=== PATIENT | female | born 1960 | race Caucasian/White ===

== ENCOUNTER 2019-02-20 11:44 | Inpatient (IN) ==
--- NOTE | 2019-02-20 12:06 | Emergency Department Note ---
Disposition Clinical Impression: Pneumonia Qualifiers: Pneumonia type: due to unspecified organism Laterality: left Lung location: lower lobe of lung Qualified Code(s): J18.1 - Lobar pneumonia, unspecified organism Disposition: Admitted As Inpatient Condition: Fair Time of Disposition: 14:37 General Adult HPI - General Chief complaint: ED Shortness of Breath/Dyspnea Stated complaint: TK, PE & DVT last week Time Seen by Provider: 02/20/19 11:51 Source: patient Limitations: no limitations Nursing Notes Reviewed: Yes Vital Signs Reviewed: Yes - History of Present Illness HPI Narrative: Ms. Sharp is a 58-year-old female presented to the ED complaining of worsening shortness of breath with exertion. She reports she was diagnosed with pulmonary embolism on 02/14/19 in [place]. She had bilateral DVTs with known history of factor V Leiden diagnosed one week ago. States that she was on heparin drip for 2 days and was discharged on xarelto, currently taking general to 15 mg twice a day. States no shortness of breath at rest but worsening shortness of breath with exertion. States that she was on doxycycline for "cellulitis" just last week, denies any recent use of antibiotic. Does report left earache. Reports poor oral intake for the past week but no episodes of emesis. Reports she had a fever 101.6 last night. The fever does resolve after taking Tylenol but returns at night. Has had ongoing fever for the past 3 weeks was being treated for lower extremity cellulitis and at that time her highest temperature was 102.6. Also reports ongoing cough for the past week. She denies abdominal pain, dysuria, lower extremity edema, headache, chest pain, visual disturbance, sore throat. Pain Scale: 6 - Related Data Home Medications Medication Instructions Recorded Confirmed Calcium Carbonate [Tums] 500 mg PO Q4H PRN 02/20/19 02/20/19 Ergocalciferol (VITAMIN D2) 50,000 unit PO TAMAYO 02/20/19 02/20/19 [Vitamin D2] Escitalopram [Lexapro] 10 mg PO DAILY 02/20/19 02/20/19 Rivaroxaban [Xarelto] 15 mg PO BID 02/20/19 02/20/19 Allergies Allergy/AdvReac Type Severity Reaction Status Date / Time No Known Allergies Allergy Verified 02/20/19 13:20 All systems ED: reviewed and negative except as stated. Review of Systems: As Per HPI Constitutional: Reports: fever. Denies: chills, weakness ENT ED: Denies: throat pain, congestion Cardiovascular: Reports: dyspnea on exertion. Denies: chest pain, palpitations Respiratory: Reports: cough, dyspnea (On exertion). Denies: wheezes Gastrointestinal: Denies: abdominal pain, nausea, vomiting Genitourinary: Denies: urgency, dysuria Musculoskeletal: Denies: back pain Integumentary: Denies: rash, abrasion Neurological: Denies: headache, weakness Hematological/Lymphatic: Denies: easy bleeding Past Medical History - Past Medical History Medical history: Reports: cancer, DVT, pulmonary embolus - Social History Smoking Status: Never smoker Alcohol use: Reports: none Drug use: Reports: none Physical Exam - General General appearance: alert, in no apparent distress - Head Head exam: atraumatic, normocephalic - Eye Eye exam: Present: normal appearance, EOMI. Absent: scleral icterus - ENT ENT exam: normal exam, normal oropharynx - Neck Neck exam: Present: normal inspection, full ROM, trachea midline - Chest Chest inspection: Present: normal inspection, symmetric chest wall rise - Respiratory Respiratory exam: Present: normal lung sounds bilaterally, other (On 2 L of nasal cannula, room air saturation 87%). Absent: respiratory distress, wheezes - Cardiovascular Cardiovascular exam: Present: tachycardia - Abdominal Exam Abdominal exam: Present: soft, Non-Tender. Absent: distention, guarding - Extremities Exam Extremities exam: Absent: tenderness, pedal edema - Neurological Exam Neurological exam: Present: alert, oriented X3 - Psychiatric Psychiatric exam: Present: normal affect, normal mood Course Vital Signs Temperature 99.3 F 02/20/19 11:57 Pulse Rate 116 02/20/19 11:57 Respiratory Rate 22 02/20/19 11:57 Blood Pressure 124/92 02/20/19 11:57 O2 Sat by Pulse Oximetry 88 02/20/19 11:57 Temperature 99.3 F 02/20/19 11:57 Pulse Rate 97 02/20/19 13:20 Respiratory Rate 02/20/19 13:20 Blood Pressure 108/74 02/20/19 13:20 O2 Sat by Pulse Oximetry 100 02/20/19 13:20 Oxygen Delivery Oxygen Delivery Nasal Cannula Medical Decision Making - [facility] Narrative Medical decision making narrative: Ms. Sharp is a 58-year-old female presented to the ED complaining of dyspnea on exertion ongoing since her diagnosis of pulmonary embolism on 02/14/19. She is currently on salt reports taking it daily. Also reports fever over 101.6 Chest x-ray, urinalysis, BMP, CBC, lactic acid ordered Chest x-ray shows left lower lobe consolidation. Oxygen saturation dropped to 87% on room air. Admitted under hospital service - Medical Records Medical records reviewed: Yes I reviewed the patient's medical records. - Lab Data Lab results reviewed: Yes I reviewed the patient's lab results. Result diagrams: 02/20/19 12:15 02/20/19 12:15 Lab Results 02/20/19 02/20/19 02/20/19 Range/Units 12:15 12:15 12:15 WBC 9.9 (4.3-11.1) K/mcL RBC 4.11 (3.82-4.97) M/mcL Hgb 12.2 (11.5-15.4) g/dL Hct 37.7 (35.3-44.9) % MCV 91.7 (83.0-100.0) fL MCH 29.7 (28.0-33.3) pg MCHC 32.4 (31.6-35.5) g/dL RDW 16.9 H (11.5-14.5) % Plt Count 240 (140-400) K/mcL MPV 9.8 (9.4-12.4) fL Seg Neutrophils % 42.0 % Lymphocytes % 54.0 % Monocytes % 2.0 % Basophils % 2.0 % Neutrophils # 4.2 (1.6-8.9) K/mcL Lymphocytes # 5.4 H (0.6-4.6) K/mcL Monocytes # 0.2 (0.0-1.3) K/mcL Basophils # 0.2 (0.0-0.2) K/mcL Reactive Lymphocytes Present A (Not Present) Platelet Estimate Normal (Normal) Polychromasia 1+ A (Not Present) Sodium 137 (136-145) mEq/L Potassium 4.3 (3.5-5.1) mEq/L Chloride 100 (98-107) mEq/L Carbon Dioxide 25 (23-29) mEq/L BUN 14 (6-20) mg/dL Creatinine 0.99 (0.60-1.20) mg/dL Est GFR ( Amer) > 60 (> 60) Est GFR (Non-Af Amer) 58 L (> 60) BUN/Creatinine Ratio 14 (6-26) Glucose 109 H (70-105) mg/dL Calculated Osmolality 285 (280-300) Lactic Acid 0.8 (0.5-2.2) mmol/L Calcium 8.9 (8.6-10.3) mg/dL Urine Color (Yellow) Urine Clarity (Clear) Urine pH (5.0-8.0) pH Units Ur Specific [place] (1.010-1.025) Urine Protein (Neg-Trace) mg/dL Urine Glucose (UA) (Normal) mg/dL Urine Ketones (Negative) mg/dL Urine Blood (Negative) Urine Nitrite (Negative) Urine Bilirubin (Negative) Urine Urobilinogen (Normal) mg/dL Ur Leukocyte Esterase (Negative) Urine Microscopic RBC (0-3) per hpf Urine Microscopic WBC (0-3) per hpf Ur Squamous Epith Cells (None-Few) per lpf Urine Bacteria (None-Few) per hpf Hyaline Casts (None-Few) per lpf Ur Culture Indicated? (NO) 02/20/19 Range/Units 12:42 WBC (4.3-11.1) K/mcL RBC (3.82-4.97) M/mcL Hgb (11.5-15.4) g/dL Hct (35.3-44.9) % MCV (83.0-100.0) fL MCH (28.0-33.3) pg MCHC (31.6-35.5) g/dL RDW (11.5-14.5) % Plt Count (140-400) K/mcL MPV (9.4-12.4) fL Seg Neutrophils % % Lymphocytes % % Monocytes % % Basophils % % Neutrophils # (1.6-8.9) K/mcL Lymphocytes # (0.6-4.6) K/mcL Monocytes # (0.0-1.3) K/mcL Basophils # (0.0-0.2) K/mcL Reactive Lymphocytes (Not Present) Platelet Estimate (Normal) Polychromasia (Not Present) Sodium (136-145) mEq/L Potassium (3.5-5.1) mEq/L Chloride (98-107) mEq/L Carbon Dioxide (23-29) mEq/L BUN (6-20) mg/dL Creatinine (0.60-1.20) mg/dL Est GFR ( Amer) (> 60) Est GFR (Non-Af Amer) (> 60) BUN/Creatinine Ratio (6-26) Glucose (70-105) mg/dL Calculated Osmolality (280-300) Lactic Acid (0.5-2.2) mmol/L Calcium (8.6-10.3) mg/dL Urine Color Yellow (Yellow) Urine Clarity Cloudy A (Clear) Urine pH 5.5 (5.0-8.0) pH Units Ur Specific [place] 1.020 (1.010-1.025) Urine Protein 30 H (Neg-Trace) mg/dL Urine Glucose (UA) Normal (Normal) mg/dL Urine Ketones Negative (Negative) mg/dL Urine Blood Negative (Negative) Urine Nitrite Negative (Negative) Urine Bilirubin Negative (Negative) Urine Urobilinogen Normal (Normal) mg/dL Ur Leukocyte Esterase Negative (Negative) Urine Microscopic RBC 0-3 (0-3) per hpf Urine Microscopic WBC 3-5 H (0-3) per hpf Ur Squamous Epith Cells Many H (None-Few) per lpf Urine Bacteria None Seen (None-Few) per hpf Hyaline Casts None Seen (None-Few) per lpf Ur Culture Indicated? NO (NO) - Radiology Data Radiology results reviewed: Yes I reviewed the patient's radiology results. Critical Care Time Critical Care Time: Yes Total Critical Care Time: 36 Attestation: Pneumonia with hypoxia. Attestation Statement - Attestation Attestation: Dr. Wynn note: Patient was seen in conjunction with internal medicine resident Dr. Yesy Foote; please see her charting for complete documentation. I spent [id number] time with the patient and I agree with patient's treatment and disposition. Progressive shortness of breath both at rest and on exertion for 2-3 days. Patient is 80% on room air arrival. findings noted on x-ray. At baseline she is currently being treated for pulmonary emboli. Antibiotics given in the ER. Admitted in stable and improved condition. Blood work and x-ray results reviewed.
[2019-02-20] MEDS ORDERED: levoFLOXacin 500 MG/100 ML 500 MG/100 ML BAG IVPB ONE (12:25)
[2019-02-20] MEDS ORDERED: 0.9 % Sodium Chloride 1,000 ML IVC ONE (12:25)
[2019-02-20 12:41] LABS: Hematocrit 37.7 % (35.3-44.9); Hemoglobin 12.2 g/dL (11.5-15.4); Mean Corpuscular HGB Conc 32.4 g/dL (31.6-35.5); Mean Corpuscular Hemoglobin 29.7 pg (28.0-33.3); Mean Corpuscular Volume 91.7 fL (83.0-100.0); Mean Platelet Volume 9.8 fL (9.4-12.4); Platelet Count 240 K/mcL (140-400); Red Blood Count 4.11 M/mcL (3.82-4.97); Red Cell Distribution Width 16.9 % (11.5-14.5); White Blood Count 9.9 K/mcL (4.3-11.1)
[2019-02-20 13:03] LABS: BUN/Creatinine Ratio 14 (6-26); Blood Urea Nitrogen 14 mg/dL (6-20); Calcium 8.9 mg/dL (8.6-10.3); Carbon Dioxide 25 mEq/L (23-29); Chloride 100 mEq/L (98-107); Glucose 109 mg/dL (70-105); Osmolality,Calculated 285 (280-300); Potassium 4.3 mEq/L (3.5-5.1); Sodium 137 mEq/L (136-145); eGFR For African Americans > 60 (> 60); eGFR For Non-African Americans 58 (> 60)
[2019-02-20 13:08] LABS: Bilirubin,Urine Negative (Negative); Blood,Urine Negative (Negative); Clarity,Urine Cloudy (Clear); Color,Urine Yellow (Yellow); Glucose,Urine (UA) Normal (Normal); Ketones,Urine Negative (Negative); Leukocyte Esterase,Urine Negative (Negative); Nitrite,Urine Negative (Negative); PH,Urine 5.5 pH Units (5.0-8.0); Protein,Urine 30 mg/dL (Neg-Trace); Urobilinogen,Urine Normal (Normal)
[2019-02-20 13:10] LABS: Bacteria,Urine None Seen per hpf (None-Few); Hyaline Casts,Urine None Seen per lpf (None-Few); RBC,Urine 0-3 per hpf (0-3); Squamous Epithelial Cell,Urine Many per lpf (None-Few)
[2019-02-20 13:31] LABS: Basophils # 0.2 K/mcL (0.0-0.2); Lymphocytes # 5.4 K/mcL (0.6-4.6); Monocytes # 0.2 K/mcL (0.0-1.3); Neutrophils # 4.2 K/mcL (1.6-8.9); Reactive Lymphocytes Present (Not Present)
[2019-02-20 13:32] LABS: Platelet Estimate Normal (Normal); Polychromasia 1+ (Not Present)
--- NOTE | 2019-02-20 14:49 | Internal Med History&Physical ---
Date of Encounter: 02/20/19 Time of Encounter: 15:46 Internal Medicine - H&P: HPI History of present illness: Ms. Sharp is a 58-year-old female with history of recent hospitalization around one week ago, newly diagnosed PE on Xarelto, factor V Leiden diagnosed, presented to the ED complaining of worsening shortness of breath with exertion. She reports she was diagnosed with pulmonary embolism on 02/14/19 in [place]. Currently complains of cough with clear sputum. Tmax 102.6 at home. She had bilateral DVTs for several weeks that were treated initially as cellulitis with doxycycline without resolve. Pt states that at [facility] she was on heparin drip for 2 days and was discharged on Xarelto, currently taking general to 15 mg twice a day. Does report left earache. Reports she had a fever 101.6 last night and persists despite Tylenol. Denies abdominal pain, dysuria, lower extremity e jagruti, headache, chest pain, visual disturbance, sore throat. In the ED patient met 2 SIRS criteria initially for tachycardia and tachypnea, aside from the fevers she has at home. A chest x-ray showed small left pleural effusion and left lower lobe opacities. Family history reviewed, notable for Factor V Leiden deficiency. Past Med Surg Social Fam HX - Past Medical History Medical history: cancer, DVT, pulmonary embolus Additional medical history: Breast (2018) & ovarian cancer (2011); factor V - Social History Smoking Status: Never smoker Alcohol use: none Drug use: none Internal Medicine - H&P: Meds Calcium Carbonate [Tums] 500 mg PO Q4H PRN 02/20/19 [History] Ergocalciferol (VITAMIN D2) [Vitamin D2] 50,000 unit PO TAMAYO 02/20/19 [History] Escitalopram [Lexapro] 10 mg PO DAILY 02/20/19 [History] Rivaroxaban [Xarelto] 15 mg PO BID 02/20/19 [History] Allergy/AdvReac Type Severity Reaction Status Date / Time No Known Allergies Allergy Verified 02/20/19 13:20 All Systems PM: A 10-system review of systems was performed and is negative for pertinent findings except as documented above in the HPI. - Constitutional Constitutional: excessive sweating, fever(s), lethargy, weakness, no falls - EENT Eyes: no blurry vision, no discharge Nose, mouth and throat: no facial pain - Respiratory Respiratory: cough, dyspnea, dyspnea on exertion, no hemoptysis - Gastrointestinal Gastrointestinal: no abdominal pain, no change in bowel habits - Genitourinary Genitourinary: no change in urinary stream, no dysuria, no flank pain, no hematuria - Musculoskeletal Musculoskeletal ROS IM: no numbness, no tingling - Neurological Neurological ROS: no confusion, no convulsions, no focal weakness, no numbness, no tingling, no tremor(s) - Psychiatric Psychiatric: no anxiety, no behavioral changes - Endocrine Endocrine IM: no cold intolerance - Hematologic/Lymphatic Hematologic/Lymphatic: no easy bleeding - Allergic/Immunologic Allergic/Immunologic: no tongue swelling - Constitutional Vitals: Temp Pulse Resp BP Pulse Ox 99.3 F 97 24 108/74 100 02/20/19 11:57 02/20/19 13:20 02/20/19 13:20 02/20/19 13:20 02/20/19 13:20 General appearance: Present: A&O X 3, no acute distress Exam: . - Head Head exam: Present: atraumatic, normocephalic - Eye Eye exam: Present: PERRL, conjuntiva pink, sclera anicteric Pupils: Present: PERRL - Neck Neck exam general surgery: Present: supple, trachea midline. Absent: lymphadenopathy - Respiratory Respiratory exam: Absent: accessory muscle use, rhonchi, wheezes Additional comments: Fine rales at bases. - Cardiovascular Cardiovascular exam: Present: RRR, +S1, +S2. Absent: diastolic murmur, gallop, rubs, systolic murmur - GI/Abdominal GI/Abdominal exam: Present: normal bowel sounds, soft, no peritoneal signs. Absent: distended, tenderness - Extremities Exam Extremities exam: Present: warm, radial pulses palpable and symmetrical. Absent: calf tenderness, cyanotic, pedal edema - Neurological Exam Neurological exam: Present: CN II-XII intact, oriented X3, no focal deficits. Absent: pronater drift, facial droop, speech deficit - Skin Skin exam: Present: dry, intact Internal Med - H&P Results - Labs CBC & Chem 7: 02/20/19 12:15 02/20/19 12:15 Labs: Short CBC 02/20/19 Range/Units 12:15 WBC 9.9 (4.3-11.1) K/mcL Hgb 12.2 (11.5-15.4) g/dL Hct 37.7 (35.3-44.9) % Plt Count 240 (140-400) K/mcL Neutrophils # 4.2 (1.6-8.9) K/mcL BMP 02/20/19 12:15 Sodium 137 Potassium 4.3 Chloride 100 Carbon Dioxide 25 BUN 14 Creatinine 0.99 Glucose 109 H Calcium 8.9 Urine 02/20/19 Range/Units 12:42 Urine Color Yellow (Yellow) Urine Clarity Cloudy A (Clear) Urine pH 5.5 (5.0-8.0) pH Units Ur Specific [place] 1.020 (1.010-1.025) Urine Protein 30 H (Neg-Trace) mg/dL Urine Glucose (UA) Normal (Normal) mg/dL - Impressions ITS Impressions Chest X-Ray 02/20/19 12:09 IMPRESSION: Small left pleural effusion with patchy left lower lobe opacities may represent consolidation from pneumonia. Bibasilar linear subsegmental atelectasis. D/ / Marcus Holloway MD / Marcus Holloway MD Interpreting Provider: Marcus Holloway MD - Assessment and Plan (1) Acute respiratory failure with hypoxia Current Visit: Yes Status: Acute Assessment and plan: Secondary to pneumonia with sepsis, and likely from recently diagnosed pulmonary embolism on 02/14/19. - Continue Levaquin - Follow-up blood cultures, sputum culture - Continue supplemental oxygen - Incentive spirometry - Echocardiogram, evaluate for any right heart strain. (2) Sepsis Current Visit: Yes Status: Acute Assessment and plan: Source is pneumonia. Lactic acid within normal limits. 2 SIRS criteria of tachycardia and tachypnea on admission. Also had fevers at home with Tmax 102 F. - Continue Levaquin - Follow-up blood cultures - RIP, procalcitonin. Qualifiers: Sepsis type: sepsis due to unspecified organism Qualified Code(s): A41.9 - Sepsis, unspecified organism (3) Pulmonary embolism Current Visit: Yes Status: Acute Assessment and plan: Recently diagnosed on 02/14/19 at [facility], discharged with Xarelto. See plan above. Qualifiers: Pulmonary embolism type: unspecified Chronicity: unspecified Acute cor pulmonale presence: without acute cor pulmonale Qualified Code(s): I26.99 - Other pulmonary embolism without acute cor pulmonale (4) HAP (hospital-acquired pneumonia) Current Visit: Yes Status: Acute Assessment and plan: See sepsis. 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 (7) DVT prophylaxis Current Visit: Yes Status: Acute Assessment and plan: On Xarelto - Time Spent With Patient Total time spent is greater than 50% in coordination of care (as documented) at patient's floor/unit and/or counseling patient:
[2019-02-20] MEDS ORDERED: Naloxone 0.4 MG/ML INJ IVP PRN (14:58)
--- NOTE | 2019-02-20 16:21 | Pulmonology Consult Note ---
Date of Encounter: 02/20/19 Time of Encounter: 16:00 Assessment and Plan (1) Pneumonia Current Visit: Yes Status: Acute Patient has this left lower lobe pneumonia is confirmed with CT chest agree with broad-spectrum antibiotics. De-escalate the antibiotics according to response. Qualifiers: Pneumonia type: due to unspecified organism Laterality: left Lung location: lower lobe of lung Qualified Code(s): J18.1 - Lobar pneumonia, unspecified organism (2) Acute respiratory failure with hypoxia Current Visit: Yes Status: Acute Presenting with acute respiratory failure with hypoxia with a slow decline in the exerciseTo T tolerance most likely due to left lower lobe pneumonia and pulmonary embolism.To continue O2 supplementation . To keep saturation above 92- 94% (3) Factor V Leiden mutation Current Visit: Yes Status: Acute Since patient has factor V Leiden mutation. This pulmonary embolism came up to possible provoked event patient will need lifelong anticoagulation we will need to evaluate for other rare deficiency like antithrombin III or prtein c and s deficiency . Recommend Hematology consult. (4) Pulmonary embolism Current Visit: Yes Status: Acute Patient is hemodynamically stable no evidence of clinical right heart strain to continue the current oral anticoagulation. Qualifiers: Pulmonary embolism type: unspecified Chronicity: unspecified Acute cor pulmonale presence: without acute cor pulmonale Qualified Code(s): I26.99 - Other pulmonary embolism without acute cor pulmonale History of Present Illness Consult date: 02/20/19 Requesting physician: Kirk Bobo Reason for consult: dyspnea, pneumonia Chief complaint: shortness of breadth on exertion History of present illness: 58-year-old female with past medical history of factor V Leiden mutation no significant pulmonary history comes with worsening shortness of breath for past few weeks had some leg swelling which was treated as cellulitis for 2 weeks was recently found to have bilateral pulmonary embolus with some bilateral DVT which was diagnosed in [facility] patient is a old patient of [facility] patient had the breast cancer had lump removal and radiotherapy never had felicitas motherapy before . Patient had cough with sputum production had the some on and off high-grade fever in the evening patient denies any night sweats, any other musculoskeletal symptoms patient denies any travel history denies any exposure to any farm animals. Patient denies any chest pain chest tightness denies any palpitation or syncope patient denies any neurological symptoms patient denies any headache patient denies any eye symptoms patient denies any skin symptoms. Was discovered her factor V Leiden mutation when she had miscarriage long back.. Never Had the pulmonary embolism in the past. Chest x- ray showed a possible left lower lobe pneumonia patient is Xarelto prescribed by [facility]. Pulmonary was consulted for evaluation of pneumonia and pulmonary embolism Past Med Surg Social Fam HX - Past Medical History Medical history: cancer, DVT, pulmonary embolus Additional medical history: Breast (2018) & ovarian cancer (2011); factor V - Social History Smoking Status: Never smoker Alcohol use: none Drug use: none - Family History Father Living Status: Still Living Hx Family Cardiac Disorders: Yes Hx Family Respiratory Disorders: Yes (COPD) Mother Living Status: Still Living Hx Family Cardiac Disorders: Yes (factor V) Medications and Allergies Calcium Carbonate [Tums] 500 mg PO Q4H PRN 02/20/19 [History] Ergocalciferol (VITAMIN D2) [Vitamin D2] 50,000 unit PO TAMAYO 02/20/19 [History] Escitalopram [Lexapro] 10 mg PO DAILY 02/20/19 [History] Rivaroxaban [Xarelto] 15 mg PO BID 02/20/19 [History] Allergy/AdvReac Type Severity Reaction Status Date / Time No Known Allergies Allergy Verified 02/20/19 13:20 All Systems: The remainder of the systems were reviewed and are negative Physical Examination Vital Signs: Vital Signs, Last 4 Hours Temp Pulse Resp BP Pulse Ox 02/20/19 16:17 99.2 F 87 19 98/65 95 02/20/19 13:20 97 24 108/74 100 02/20/19 12:40 104 122/80 95 General appearance: no acute distress Eyes: nonicteric ENT: oropharynx moist Neck: supple Effort: normal Auscultation: left: diminished breath sounds, bilateral: other (left base crackles) Cardiovascular: regular rate and rhythm Gastrointestinal: normoactive bowel sounds Extremities: edema Musculoskeletal: no deformities normal mental status, non-focal exam mood appropriate Results - Laboratory Findings CBC and BMP: 02/20/19 12:15 02/20/19 12:15 Abnormal lab findings: Abnormal lab results RDW 16.9 % (11.5-14.5) H 02/20/19 12:15 5.4 K/mcL (0.6-4.6) H 02/20/19 12:15 Present (Not Present) A 02/20/19 12:15 1+ (Not Present) A 02/20/19 12:15 Est GFR (Non-Af Amer) 58 (> 60) L 02/20/19 12:15 Glucose 109 mg/dL (70-105) H 02/20/19 12:15 0.28 ng/mL (0.00-0.15) H 02/20/19 12:15 Cloudy (Clear) A 02/20/19 12:42 30 mg/dL (Neg-Trace) H 02/20/19 12:42 3-5 per hpf (0-3) H 02/20/19 12:42 Ur Squamous Epith Cells Many per lpf (None-Few) H 02/20/19 12:42 - Microbiology Findings Microbiology Findings: Microbiology, Last 48 Hours 02/20/19 15:13 Blood Culture - Preliminary Peripheral Venipuncture Culture is incubating and being continuously monitored for growth. Final report to follow. 02/20/19 15:13 Blood Culture - Preliminary Peripheral Venipuncture Culture is incubating and being continuously monitored for growth. Final report to follow. - Clinical Findings Intake & Output: Intake & Output 02/20/19 02/20/19 02/20/19 07:59 15:59 23:59 Intake Total 1100 / 1100 Balance 1100 / 1100 Weight 92.442 kg Consult Discharge Plan - Plan Referrals: Skyler Hernández MD [Primary Care Provider] -
[2019-02-20] MEDS: Albuterol 2.5 MG/3 ML NEBULIZER IH PRN (17:41)
[2019-02-20] MEDS: Piperacillin/Tazobactam 3.375 GM in 0.9 % Sodium Chloride Mini Bag 100 ML IVPB SCH ×2 (18:37→22:52)
[2019-02-20] MEDS: 0.9 % Sodium Chloride 1,000 ML IVC SCH (18:38)
[2019-02-20 19:21] LABS: Adenovirus Not Detected (Not Detect); Bordetella Pertussis Not Detected (Not Detect); Chlamydophila pneumoniae Not Detected (Not Detect); Coronavirus 229E Not Detected (Not Detect); Coronavirus HKU1 Not Detected (Not Detect); Coronavirus NL63 Not Detected (Not Detect); Coronavirus OC43 Not Detected (Not Detect); Human Metapneumovirus Not Detected (Not Detect); Human Rhinovirus/Enterovirus Not Detected (Not Detect); Influenza A Subtype 2009 H1 Not Detected (Not Detect); Influenza A Untypeable Not Detected (Not Detect); Influenza B Not Detected (Not Detect); Mycoplasma pneumoniae Not Detected (Not Detect); Parainfluenza Virus 1 Not Detected (Not Detect); Parainfluenza Virus 2 Not Detected (Not Detect); Parainfluenza Virus 3 Not Detected (Not Detect); Parainfluenza Virus 4 Not Detected (Not Detect); Respiratory Syncytial Virus Not Detected (Not Detect)
[2019-02-20] MEDS ORDERED: Acetaminophen 325 MG TABLET PO ONE (19:51)
[2019-02-20] MEDS: *HR* Rivaroxaban 15 MG TABLET PO SCH (20:26)
[2019-02-20] MEDS ORDERED: Perflutren Lipid Microsphere 1.3 ML in 0.9 % Sodium Chloride 8.7 ML IVP ONE (20:29)
[2019-02-21] MEDS: 0.9 % Sodium Chloride 1,000 ML IVC SCH ×2 (04:18→04:19)
--- NOTE | 2019-02-21 07:40 | Internal Med Progress Note ---
Hospitalist Progress Note - Encounter Date of Encounter: 02/21/19 Time of Encounter: 12:01 - Subjective Interval History: Tmax overnight was 100.3F, with episode of tachycardia. Patient states she felt like she was drained in sweat. SOB still persists. - Exam Vitals: Temp Pulse Resp BP Pulse Ox 99.4 F 93 16 112/74 96 02/21/19 06:45 02/21/19 06:45 02/21/19 06:45 02/21/19 06:45 02/21/19 06:45 Exam: Gen: NAD, AAO x3 Head: NC/AT ENT: MM slightly dry, but more moist than yesterday assessment Neck: supple, no LA CVS: RRR Lungs: CTAB Abd; soft, NT/ND Ext: no edema, no cyanosis. . - Assessment and Plan (1) Acute respiratory failure with hypoxia Current Visit: Yes Status: Acute Assessment and Plan: Secondary to pneumonia with sepsis, and likely from recently diagnosed pulmonary embolism on 02/14/19. Echocardiogram did not reveal any heart strain or thrombus. Sepsis may be resolving, but she may continue to have fevers because of PE. - Continue Vanc/Zosyn - Follow-up blood cultures, sputum culture - Continue supplemental oxygen - Incentive spirometry - Pulmonology recommendations appreciated. (2) Sepsis Current Visit: Yes Status: Acute Assessment and Plan: Source is pneumonia. Lactic acid within normal limits. On admission; 2 SIRS criteria of tachycardia and tachypnea. Also had fevers at home with Tmax 102 F. Currently afebrile, hemodynamically stable. plan as above (3) Pulmonary embolism Current Visit: Yes Status: Acute Assessment and Plan: Recently diagnosed on 02/14/19 at [facility], discharged with Xarelto. echocardiogram without heart strain. Medical records requested. (4) HAP (hospital-acquired pneumonia) Current Visit: Yes Status: Acute Assessment and Plan: See sepsis. 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 (7) DVT prophylaxis Current Visit: Yes Status: Acute Assessment and Plan: On Xarelto - Time Spent with Patient Total time spent is greater than 50% in coordination of care (as documented) at patient's floor/unit and/or counseling patient: Internal Medicine: Result - Labs CBC & Chem 7: 02/20/19 12:15 02/20/19 12:15 Labs: Short CBC 02/20/19 Range/Units 12:15 WBC 9.9 (4.3-11.1) K/mcL Hgb 12.2 (11.5-15.4) g/dL Hct 37.7 (35.3-44.9) % Plt Count 240 (140-400) K/mcL Neutrophils # 4.2 (1.6-8.9) K/mcL BMP 02/20/19 12:15 Sodium 137 Potassium 4.3 Chloride 100 Carbon Dioxide 25 BUN 14 Creatinine 0.99 Glucose 109 H Calcium 8.9 Urine 02/20/19 Range/Units 12:42 Urine Color Yellow (Yellow) Urine Clarity Cloudy A (Clear) Urine pH 5.5 (5.0-8.0) pH Units Ur Specific [place] 1.020 (1.010-1.025) Urine Protein 30 H (Neg-Trace) mg/dL Urine Glucose (UA) Normal (Normal) mg/dL - Impressions Impressions Chest X-Ray 02/20/19 12:09 IMPRESSION: Small left pleural effusion with patchy left lower lobe opacities may represent consolidation from pneumonia. Bibasilar linear subsegmental atelectasis. D/ / Marcus Holloway MD / Marcus Holloway MD Interpreting Provider: Marcus Holloway MD Chest CT 02/20/19 16:19 IMPRESSION: 1. Left lower lobe consolidation. In the proper clinical setting, finding would be compatible with pneumonia. 2. Small left pleural effusion. 3. Bibasilar dependent atelectasis. 4. Skin thickening of the left breast, likely secondary to prior radiation in a patient with known breast cancer. 5. Heterogeneous enlargement of the left lobe of thyroid. Recommend ultrasound of the thyroid on a nonemergent basis for further evaluation. 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
[2019-02-21] MEDS: Cholecalciferol (D-3) 1,000 UNIT TABLET PO SCH (08:50)
[2019-02-21] MEDS: *HR* Rivaroxaban 15 MG TABLET PO SCH ×2 (08:50→20:08)
[2019-02-21] MEDS: Piperacillin/Tazobactam 3.375 GM in 0.9 % Sodium Chloride Mini Bag 100 ML IVPB SCH ×2 (08:50→17:21)
[2019-02-21] MEDS ORDERED: Aminoglycoside Consult 1 EACH MC ONE (10:09)
--- NOTE | 2019-02-21 12:40 | Pulmonology Progress Note ---
Date of Encounter: 02/21/19 Time of Encounter: 11:45 Assessment and Plan (1) Pneumonia Current Visit: Yes Status: Acute Patient has left lower lobe pneumonia patient is on broad-spectrum antibiotics trend the Procalcitonin as it is elevated. Qualifiers: Pneumonia type: due to unspecified organism Laterality: left Lung location: lower lobe of lung Qualified Code(s): J18.1 - Lobar pneumonia, unspecified organism (2) Acute respiratory failure with hypoxia Current Visit: Yes Status: Acute Patient was with acute respiratory failure VQ mismatch contributed by pulmonary embolism which has been treated with Xarelto and also complicated by this left lower lobe pneumonia which is treated as suspected Gram-positive and gram- negative pneumonia. (3) Factor V Leiden mutation Current Visit: Yes Status: Acute Patient will need lifelong anticoagulation after this event. Saw the event noted by [facility] given the option for patient to follow-up with them as an outpatient follow-up or with the [facility]. (4) Pulmonary embolism Current Visit: Yes Status: Acute Patient has pulmonary embolism started on Xarelto patient to follow-up with the hematology as an outpatient. Qualifiers: Pulmonary embolism type: unspecified Chronicity: unspecified Acute cor pulmonale presence: without acute cor pulmonale Qualified Code(s): I26.99 - Other pulmonary embolism without acute cor pulmonale (5) Diastolic heart failure Current Visit: Yes Status: Acute We will hold off diuresis for now when more stable we can start gentle diuresis Qualifiers: Heart failure chronicity: chronic Qualified Code(s): I50.32 - Chronic diastolic (congestive) heart failure Subjective Principal diagnosis: Pneumonia with pulmonary embolism Interval history: Patient is sitting in chair slowly getting better still requiring oxygen patient has significant V/Q mismatch . Patient denies any significant chest pain chest tightness. Objective PUL Vital signs: Last Vital Signs Temp 99.4 F 02/21/19 10:00 Pulse 99 02/21/19 10:00 Resp 16 02/21/19 10:00 BP 116/76 02/21/19 10:00 Pulse Ox 95 02/21/19 10:00 General appearance: no acute distress Effort: mildly labored Auscultation: left: diminished breath sounds Cardiovascular: regular rate and rhythm Gastrointestinal: normoactive bowel sounds Musculoskeletal: no deformities normal mental status, non-focal exam Results - Laboratory Findings CBC and BMP: 02/20/19 12:15 02/20/19 12:15 Abnormal lab findings: Abnormal lab results RDW 16.9 % (11.5-14.5) H 02/20/19 12:15 5.4 K/mcL (0.6-4.6) H 02/20/19 12:15 Present (Not Present) A 02/20/19 12:15 1+ (Not Present) A 02/20/19 12:15 Est GFR (Non-Af Amer) 58 (> 60) L 02/20/19 12:15 Glucose 109 mg/dL (70-105) H 02/20/19 12:15 0.28 ng/mL (0.00-0.15) H 02/20/19 12:15 Cloudy (Clear) A 02/20/19 12:42 30 mg/dL (Neg-Trace) H 02/20/19 12:42 3-5 per hpf (0-3) H 02/20/19 12:42 Ur Squamous Epith Cells Many per lpf (None-Few) H 02/20/19 12:42 - Microbiology Findings Microbiology Findings: Microbiology, Last 48 Hours 02/20/19 12:42 Legionella Antigen - Final Urine,Clean Catch 02/20/19 12:42 Streptococcus pneumoniae Antigen (M - Final Urine,Clean Catch 02/20/19 15:13 Blood Culture - Preliminary Peripheral Venipuncture Culture is incubating and being continuously monitored for growth. Final report to follow. 02/20/19 15:13 Blood Culture - Preliminary Peripheral Venipuncture Culture is incubating and being continuously monitored for growth. Final report to follow. - Clinical Findings Intake & Output: Intake & Output 02/20/19 02/21/19 02/21/19 23:59 07:59 15:59 Intake Total 470 / 1570 1250 / 1350 100 / 1350 Output Total 500 / 500 Balance -30 / 1070 1250 / 1350 100 / 1350 Consult Discharge Plan - Plan Referrals: Skyler Hernández MD [Primary Care Provider] -
--- NOTE | 2019-02-21 15:06 | Event Note ---
Date of Encounter: 02/21/19 Time of Encounter: 15:[address] Bobo by phone. He will cancel consult for hematology. Dr. Cooney and I reviewed the patient's record, patient is being treated at [facility] for cancer history, and, for history of recent PE started on anticoagulation there on 02/14/19 with xarelto starter pack. Patient can follow up with her team at [facility] after discharge to do any further hypercoagulable workup as they are managing the patient. Hospitalist requested records to see if further testing has already been completed besides factor V. If she does want to establish care here, please schedule her to see Dr. Lencho Cooney here at the [facility] as an outpatient in 4-6 weeks.
[2019-02-21] MEDS ORDERED: Acetaminophen 325 MG TABLET PO PRN (17:27)
--- NOTE | 2019-02-21 17:39 | Sepsis Event Note ---
Sepsis Reassessment Note - Evaluation Sepsis Screen: Sepsis Risk Current Stage of Sepsis: sepsis Possible Source of Sepsis: pulmonary - Focused Exam Date of Encounter: 02/21/19 Time of Encounter: 17:39 Vital Signs: Vital Signs Temp Pulse Resp BP Pulse Ox 02/21/19 14:00 101.6 F H 108 16 132/78 95 02/21/19 10:00 99.4 F 99 16 116/76 95 02/21/19 06:45 99.4 F 93 16 112/74 96 Respiratory Exam: Present: CTA bilaterally Cardiovascular Exam: Present: tachycardia Capillary Refill: < 2 seconds Peripheral Pulse Strength: 3+ normal Peripheral Pulse Location: Radial Skin Exam: normal turgor (Continue IV antibiotics. Normal BP, diagnosis of known sepsis and pulmonary embolism will continue to trigger sepsis. No need to repeat lactic acid.)
[2019-02-21] MEDS ORDERED: levoFLOXacin 750 MG/150 ML 750 MG/150 ML BAG IVPB SCH (17:45)
[2019-02-21] MEDS: levoFLOXacin 750 MG/150 ML 750 MG/150 ML BAG IVPB SCH (22:26)
[2019-02-22] MEDS: Piperacillin/Tazobactam 3.375 GM in 0.9 % Sodium Chloride Mini Bag 100 ML IVPB SCH ×4 (00:08→23:57)
[2019-02-22 08:04] LABS: Basophils # 0.1 K/mcL (0.0-0.2); Basophils % 0.8 %; Eosinophils # 0.1 K/mcL (0.0-0.6); Hematocrit 32.4 % (35.3-44.9); Immature Granulocytes % 0.3 % (0-4); Lymphocytes % 56.4 %; Mean Corpuscular HGB Conc 31.5 g/dL (31.6-35.5); Mean Corpuscular Hemoglobin 29.7 pg (28.0-33.3); Mean Corpuscular Volume 94.5 fL (83.0-100.0); Mean Platelet Volume 9.8 fL (9.4-12.4); Monocytes # 0.5 K/mcL (0.0-1.3); Monocytes % 7.3 %; Neutrophils # 2.1 K/mcL (1.6-8.9); Platelet Count 210 K/mcL (140-400); Red Blood Count 3.43 M/mcL (3.82-4.97); Red Cell Distribution Width 17.2 % (11.5-14.5); Segmented Neutrophils % 34.2 %; White Blood Count 6.1 K/mcL (4.3-11.1)
[2019-02-22 08:06] LABS: Lymphocytes # 3.4 K/mcL (0.6-4.6)
[2019-02-22 08:07] LABS: Hemoglobin 10.2 g/dL (11.5-15.4)
[2019-02-22 08:24] LABS: BUN/Creatinine Ratio 11 (6-26); Blood Urea Nitrogen 11 mg/dL (6-20); Calcium 8.2 mg/dL (8.6-10.3); Carbon Dioxide 26 mEq/L (23-29); Chloride 106 mEq/L (98-107); Glucose 97 mg/dL (70-105); Osmolality,Calculated 285 (280-300); Platelet Estimate Normal (Normal); Potassium 3.9 mEq/L (3.5-5.1); Sodium 138 mEq/L (136-145); eGFR For African Americans > 60 (> 60); eGFR For Non-African Americans 59 (> 60)
[2019-02-22] MEDS: levoFLOXacin 750 MG/150 ML 750 MG/150 ML BAG IVPB SCH (09:14)
[2019-02-22] MEDS: *HR* Rivaroxaban 15 MG TABLET PO SCH ×2 (09:15→21:27)
[2019-02-22] MEDS: Cholecalciferol (D-3) 1,000 UNIT TABLET PO SCH (09:16)
--- NOTE | 2019-02-22 10:47 | Internal Med Progress Note ---
Hospitalist Progress Note - Encounter Date of Encounter: 02/22/19 Time of Encounter: 10:43 - Subjective Interval History: Patient seen and examined this morning at bedside. No acute overnight events. Breathing improved. Denies any chest pain. Denies any nausea vomiting or diarrhea. Denies any abdominal pain. Afebrile and hemodynamically stable ove rnight. - Exam Vitals: Temp Pulse Resp BP Pulse Ox 99.5 F 84 20 103/68 95 02/22/19 06:40 02/22/19 06:40 02/22/19 06:40 02/22/19 06:40 02/22/19 06:40 Exam: General: In no acute distress. Respiratory exam: no accessory muscle use, Lt lugn field crackles, rhonchi and bronchial sound. Cardiovascular exam: RRR, +S1, +S2. no murmur, gallop, rubs. GI/Abdominal exam: Non-tender, Non-distended, normal bowel sounds, soft, no peritoneal signs. Extremities exam: 1+ pedal edema b/l, pulses palpable in b/l lower extremities. no calf tenderness Neurological exam: CN II-XII intact, AO X3, no focal deficits. . - Assessment and Plan (1) HAP (hospital-acquired pneumonia) Current Visit: Yes Status: Acute (2) Sepsis Current Visit: Yes Status: Acute (3) Ductal carcinoma in situ (DCIS) of breast Current Visit: Yes Status: Acute (4) Factor V Leiden mutation Current Visit: Yes Status: Acute (5) Acute respiratory failure with hypoxia Current Visit: Yes Status: Acute (6) DVT prophylaxis Current Visit: Yes Status: Acute (7) Pulmonary embolism Current Visit: Yes Status: Acute - Summary of Assessment and Plan Summary of Assessment and Plan: Assessment Acute acute hypoxic respiratory failure Sepsis-resolved PE HCAP- unclear organism, possibly bacterial, LLL Lt lobe thyroid enlargement on CT Chronic Ductal ca in situ in Lt breast(2017) s/p radiation Factor V leiden mutation Diastolic heart failure h/o Ovarian ca(2010) s/p surgical debulking with hysterectomy and LN removal Plan - Sepsis resolved. Likely secondary to pneumonia. Was on Vanc/zoysn/levaquin. Now on zosyn and levaquin. Will continue for now. MRSA screen, RIP Urine ag negative. Blood and sputum cx NGTD. pulm following. If negative by tomorrow will stop levaquin. - recently diagnosed pulmonary embolism on 02/14/19. Echocardiogram did not reveal any heart strain or thrombus. c/w xarelto started pack for now. Monitor Hb. Likely dilutional. No indication for transfusion. - Will need follow up US and TFT for thyroid enalargement found on CT as outp atient. Internal Medicine: Result - Labs CBC & Chem 7: 02/22/19 06:10 02/22/19 06:10 Labs: Short CBC 02/22/19 Range/Units 06:10 WBC 6.1 (4.3-11.1) K/mcL Hgb 10.2 L D (11.5-15.4) g/dL Hct 32.4 L (35.3-44.9) % Plt Count 210 (140-400) K/mcL Neutrophils # 2.1 (1.6-8.9) K/mcL BMP 02/22/19 06:10 Sodium 138 Potassium 3.9 Chloride 106 Carbon Dioxide 26 BUN 11 Creatinine 0.97 Glucose 97 Calcium 8.2 L - Impressions Impressions Echocardiogram 02/20/19 14:53 Impressions: LVEF 60-65%. Normal LV chamber size, wall thickness and function. Mild left ventricular diastolic dysfunction. Right ventricle was not well visualized. Unable to estimate RVSP due to lack of TR jet. No obvious significant valvular dysfunction. Left Ventricular Wall Motion: Rest Echo Findings All wall segments showed normal motion. Findings: Study Quality * Technically sub-optimal due to poor echocardiographic windows. ECG Findings * Normal sinus rhythm. Left Ventricle * LVEF 60-65%. * Normal LV chamber size, wall thickness and function. * Mild left ventricular diastolic dysfunction. Right Ventricle * Right ventricle was not well visualized. Left Atrium * Mildly dilated left atrium. Right Atrium * Right atrium is not well visualized. Interatrial Septum * Interatrial septum not well evaluated. Aortic Valve * Aortic valve not well visualized. * No aortic regurgitation. * No aortic stenosis. Mitral Valve * Normal mitral valve structure and function. * No mitral regurgitation. * No mitral stenosis. Tricuspid Valve * Grossly normal tricuspid valve structure and function. * No tricuspid regurgitation. * Unable to estimate RVSP due to lack of TR jet. Pulmonic Valve * Pulmonic valve not well visualized. Aorta * Normally sized aortic root. Pericardium * The pericardium appears normal. IVC * The IVC is not well evaluated. Pulmonary Artery * Pulmonary artery not well visualized. Chest CT 02/20/19 16:19 IMPRESSION: 1. Left lower lobe consolidation. In the proper clinical setting, finding would be compatible with pneumonia. 2. Small left pleural effusion. 3. Bibasilar dependent atelectasis. 4. Skin thickening of the left breast, likely secondary to prior radiation in a patient with known breast cancer. 5. Heterogeneous enlargement of the left lobe of thyroid. Recommend ultrasound of the thyroid on a nonemergent basis for further evaluation. D/ / 02/20/2019 17:59:32 Keo Gresham MD / [place]elle Interpreting Provider: Keo Gresham MD Consult Discharge Plan - Plan Referrals: Skyler Hernández MD [Primary Care Provider] - (2) Sepsis Qualifiers: Sepsis type: sepsis due to unspecified organism Qualified Code(s): A41.9 - Sepsis, unspecified organism (3) Ductal carcinoma in situ (DCIS) of breast Qualifiers: Laterality: unspecified laterality Qualified Code(s): D05.10 - Intraductal carcinoma in situ of unspecified breast (7) Pulmonary embolism Qualifiers: Pulmonary embolism type: unspecified Chronicity: unspecified Acute cor pulmonale presence: without acute cor pulmonale Qualified Code(s): I26.99 - Ot her pulmonary embolism without acute cor pulmonale
--- NOTE | 2019-02-22 15:16 | Pulmonology Progress Note ---
Date of Encounter: 02/22/19 Time of Encounter: 12:00 Assessment and Plan (1) Pneumonia Current Visit: Yes Status: Acute Patient has left lower lobe pneumonia patient is on broad-spectrum antibiotics trend the Procalcitonin as it is elevated. 02/22 since patient has still scattered wheezes no more high grade fever to continue the broad-spectrum antibiotics. Will add 40 mg per oral prednisone will assess the clinical response after this. Qualifiers: Pneumonia type: due to unspecified organism Laterality: left Lung location: lower lobe of lung Qualified Code(s): J18.1 - Lobar pneumonia, unspecified organism (2) Acute respiratory failure with hypoxia Current Visit: Yes Status: Acute Patient was with acute respiratory failure VQ mismatch contributed by pulmonary embolism which has been treated with Xarelto and also complicated by this left lower lobe pneumonia which is treated as suspected Gram-positive and gram- negative pneumonia. 02/22 patient has suspected Gram-positive gram-negative pneumonia patient has trending down Procalcitonin .. Will add prednisone (3) Factor V Leiden mutation Current Visit: Yes Status: Acute Patient will need lifelong anticoagulation after this event. Saw the event noted by [facility] given the option for patient to follow-up with them as an outpatient follow-up or with the [facility]. (4) Pulmonary embolism Current Visit: Yes Status: Acute Patient has pulmonary embolism started on Xarelto patient to follow-up with the hematology as an outpatient. Qualifiers: Pulmonary embolism type: unspecified Chronicity: unspecified Acute cor pulmonale presence: without acute cor pulmonale Qualified Code(s): I26.99 - Other pulmonary embolism without acute cor pulmonale (5) Diastolic heart failure Current Visit: Yes Status: Acute If she is not getting better and try gentle diuresis as patient has also has a background of diastolic heart failure Qualifiers: Heart failure chronicity: chronic Qualified Code(s): I50.32 - Chronic diastolic (congestive) heart failure Subjective Principal diagnosis: Pneumonia with pulmonary embolism Interval history: Patient is sitting in chair slowly getting better still requiring oxygen patient has significant V/Q mismatch . Patient denies any significant chest pain chest tightness. 02/22 patient is breathing she is feeling slightly better has some cough and some sputum production patient does not have any more high-grade fevers now some episodic low-grade fevers patient denies any chest pain chest tightness denies any palpitations syncope patient denies any headache and denies any other constitutional symptoms. Objective PUL Vital signs: Last Vital Signs Temp 99.1 F 02/22/19 12:13 Pulse 106 02/22/19 12:13 Resp 20 02/22/19 12:13 BP 109/69 02/22/19 12:13 Pulse Ox 95 02/22/19 12:13 Auscultation: bilateral: wheezes (Minimal scattered wheezes) Cardiovascular: regular rate and rhythm Gastrointestinal: normoactive bowel sounds Extremities: no cyanosis, no edema Musculoskeletal: no deformities normal mental status, non-focal exam Results - Laboratory Findings CBC and BMP: 02/22/19 06:10 02/22/19 06:10 Abnormal lab findings: Abnormal lab results RBC 3.43 M/mcL (3.82-4.97) L 02/22/19 06:10 Hgb 10.2 g/dL (11.5-15.4) L D 02/22/19 06:10 Hct 32.4 % (35.3-44.9) L 02/22/19 06:10 MCHC 31.5 g/dL (31.6-35.5) L 02/22/19 06:10 RDW 17.2 % (11.5-14.5) H 02/22/19 06:10 5.4 K/mcL (0.6-4.6) H 02/20/19 12:15 Present (Not Present) A 02/20/19 12:15 1+ (Not Present) A 02/20/19 12:15 Est GFR (Non-Af Amer) 59 (> 60) L 02/22/19 06:10 Glucose 109 mg/dL (70-105) H 02/20/19 12:15 Calcium 8.2 mg/dL (8.6-10.3) L 02/22/19 06:10 0.20 ng/mL (0.00-0.15) H 02/22/19 06:10 Cloudy (Clear) A 02/20/19 12:42 30 mg/dL (Neg-Trace) H 02/20/19 12:42 3-5 per hpf (0-3) H 02/20/19 12:42 Ur Squamous Epith Cells Many per lpf (None-Few) H 02/20/19 12:42 Vancomycin Trough 21 mcg/mL (5-10) H 02/22/19 06:10 - Microbiology Findings Microbiology Findings: Microbiology, Last 48 Hours 02/20/19 12:42 Legionella Antigen - Final Urine,Clean Catch 02/20/19 12:42 Streptococcus pneumoniae Antigen (M - Final Urine,Clean Catch 02/20/19 15:13 Blood Culture - Preliminary Peripheral Venipuncture Culture is incubating and being continuously monitored for growth. Final report to follow. 02/20/19 15:13 Blood Culture - Preliminary Peripheral Venipuncture Culture is incubating and being continuously monitored for growth. Final report to follow. - Clinical Findings Intake & Output: Intake & Output 02/21/19 02/22/19 02/22/19 23:59 07:59 15:59 Intake Total 490 / 1940 100 / 220 120 / 220 Balance 490 / 1940 100 / 220 120 / 220 Weight 92.5 kg Consult Discharge Plan - Plan Referrals: Skyler Hernández MD [Primary Care Provider] -
[2019-02-22] MEDS ORDERED: predniSONE 20 MG TABLET PO SCH (22:00)
[2019-02-23 04:54] LABS: Basophils % 0.7 %; Eosinophils % 0.2 %; Hematocrit 33.1 % (35.3-44.9); Hemoglobin 10.4 g/dL (11.5-15.4); Immature Granulocytes % 0.5 % (0-4); Lymphocytes # 2.8 K/mcL (0.6-4.6); Lymphocytes % 47.8 %; Mean Corpuscular HGB Conc 31.4 g/dL (31.6-35.5); Mean Corpuscular Hemoglobin 29.1 pg (28.0-33.3); Mean Corpuscular Volume 92.7 fL (83.0-100.0); Mean Platelet Volume 9.4 fL (9.4-12.4); Monocytes # 0.2 K/mcL (0.0-1.3); Monocytes % 3.1 %; Neutrophils # 2.8 K/mcL (1.6-8.9); Platelet Count 223 K/mcL (140-400); Red Blood Count 3.57 M/mcL (3.82-4.97); Red Cell Distribution Width 16.9 % (11.5-14.5); Segmented Neutrophils % 47.7 %; White Blood Count 5.8 K/mcL (4.3-11.1)
[2019-02-23 05:15] LABS: BUN/Creatinine Ratio 11 (6-26); Blood Urea Nitrogen 11 mg/dL (6-20); Calcium 8.5 mg/dL (8.6-10.3); Carbon Dioxide 25 mEq/L (23-29); Chloride 106 mEq/L (98-107); Glucose 159 mg/dL (70-105); Osmolality,Calculated 287 (280-300); Potassium 4.1 mEq/L (3.5-5.1); Sodium 137 mEq/L (136-145); eGFR For African Americans > 60 (> 60); eGFR For Non-African Americans 55 (> 60)
[2019-02-23 06:17] LABS: Platelet Estimate Normal (Normal); Reactive Lymphocytes Present (Not Present)
--- NOTE | 2019-02-23 06:45 | Pulmonology Progress Note ---
Date of Encounter: 02/23/19 Time of Encounter: 06:45 Assessment and Plan (1) Pneumonia Current Visit: Yes Status: Acute Clinically appears to be improving fever curve trending down Can transition to respiratory fluoroquinolone and will complete 7 day course based upon clinical response Outpatient pulmonary follow-up for repeat CT scan in 4-6 weeks Qualifiers: Pneumonia type: due to unspecified organism Laterality: left Lung location: lower lobe of lung Qualified Code(s): J18.1 - Lobar pneumonia, unspecified organism (2) Factor V Leiden mutation Current Visit: Yes Status: Acute She is on lifelong anticoagulation (3) Acute respiratory failure with hypoxia Current Visit: Yes Status: Acute Continue to encourage incentive spirometry and ambulation as tolerated along with out of bed to chair to medicate VQ mismatching atelectasis. Wean FiO2 to keep saturation greater than 90% will need walking pulse oximetry prior to discharge Pulmonary will sign off thank you very much for this consultation please call with any questions Subjective Principal diagnosis: Pneumonia with pulmonary embolism Interval history: Fever curve has trended down and patient able to sit up and take a little bit deeper. She feels like she has more "pep today" continues to cough but denies hemoptysis Objective PUL Vital signs: Last Vital Signs Temp 98.4 F 02/23/19 03:50 Pulse 75 02/23/19 03:50 Resp 18 02/23/19 03:50 BP 109/68 02/23/19 03:50 Pulse Ox 96 02/23/19 03:50 General appearance: no acute distress Eyes: nonicteric ENT: oropharynx moist Neck: supple Auscultation: bilateral: diminished breath sounds (in lung bases ) Cardiovascular: regular rate and rhythm Gastrointestinal: normoactive bowel sounds, soft, non-tender Extremities: no cyanosis, no edema, no clubbing Musculoskeletal: no deformities normal mental status, non-focal exam mood appropriate Results - Laboratory Findings CBC and BMP: 02/23/19 04:28 02/23/19 04:28 Abnormal lab findings: Abnormal lab results RBC 3.57 M/mcL (3.82-4.97) L 02/23/19 04:28 Hgb 10.4 g/dL (11.5-15.4) L 02/23/19 04:28 Hct 33.1 % (35.3-44.9) L 02/23/19 04:28 MCHC 31.4 g/dL (31.6-35.5) L 02/23/19 04:28 RDW 16.9 % (11.5-14.5) H 02/23/19 04:28 5.4 K/mcL (0.6-4.6) H 02/20/19 12:15 Present (Not Present) A 02/23/19 04:28 1+ (Not Present) A 02/20/19 12:15 Est GFR (Non-Af Amer) 55 (> 60) L 02/23/19 04:28 Glucose 159 mg/dL (70-105) H 02/23/19 04:28 Calcium 8.5 mg/dL (8.6-10.3) L 02/23/19 04:28 0.20 ng/mL (0.00-0.15) H 02/22/19 06:10 Cloudy (Clear) A 02/20/19 12:42 30 mg/dL (Neg-Trace) H 02/20/19 12:42 3-5 per hpf (0-3) H 02/20/19 12:42 Ur Squamous Epith Cells Many per lpf (None-Few) H 02/20/19 12:42 Vancomycin Trough 21 mcg/mL (5-10) H 02/22/19 06:10 - Diagnostic Findings CT scan - chest: report reviewed, image reviewed - Clinical Findings Intake & Output: Intake & Output 02/22/19 02/22/19 02/23/19 15:59 23:59 07:59 Intake Total 220 / 660 340 / 660 220 / 220 Balance 220 / 660 340 / 660 220 / 220 Weight 92.5 kg Consult Discharge Plan - Plan Referrals: Skyler Hernández MD [Primary Care Provider] -
[2019-02-23] MEDS: Piperacillin/Tazobactam 3.375 GM in 0.9 % Sodium Chloride Mini Bag 100 ML IVPB SCH (08:43)
[2019-02-23] MEDS: predniSONE 20 MG TABLET PO SCH (10:04)
[2019-02-23] MEDS: *HR* Rivaroxaban 15 MG TABLET PO SCH ×2 (10:04→22:08)
[2019-02-23] MEDS: Cholecalciferol (D-3) 1,000 UNIT TABLET PO SCH (10:05)
[2019-02-23 11:09] LABS: Mycoplasma pneumoniae IgG 0.46 U/L (<=0.09)
[2019-02-23] MEDS: Albuterol 2.5 MG/3 ML NEBULIZER IH PRN (11:18)
[2019-02-23] MEDS: levoFLOXacin 750 MG/150 ML 750 MG/150 ML BAG IVPB SCH (13:13)
[2019-02-23] MEDS ORDERED: Furosemide 40 MG/4 ML VIAL IVP ONE (14:22)
--- NOTE | 2019-02-23 14:23 | Internal Med Progress Note ---
Hospitalist Progress Note - Encounter Date of Encounter: 02/23/19 Time of Encounter: 11:20 - Subjective Interval History: Patient seen and examined this morning at bedside. No acute overnight events. Patient's breathing improving. Denies any chest pain fevers chills nausea vomiting or diarrhea. Occasionally has cough. Afebrile and hemodynamically s table. - Exam Vitals: Temp Pulse Resp BP Pulse Ox 98.4 F 102 18 118/68 94 02/23/19 12:35 02/23/19 12:35 02/23/19 12:35 02/23/19 12:35 02/23/19 13:12 Exam: General: In no acute distress. Respiratory exam: no accessory muscle use, crackles on b/l lung mid lung filed Lt >Rt Cardiovascular exam: RRR, +S1, +S2. no murmur, gallop, rubs. GI/Abdominal exam: Non-tender, Non-distended, normal bowel sounds, soft, no peritoneal signs. Extremities exam: 1+ pedal edema b/l, pulses palpable in b/l lower extremities. no calf tenderness Neurological exam: CN II-XII intact, AO X3, no focal deficits. . - Assessment and Plan (1) HAP (hospital-acquired pneumonia) Current Visit: Yes Status: Acute (2) Sepsis Current Visit: Yes Status: Acute (3) Ductal carcinoma in situ (DCIS) of breast Current Visit: Yes Status: Acute (4) Factor V Leiden mutation Current Visit: Yes Status: Acute (5) Acute respiratory failure with hypoxia Current Visit: Yes Status: Acute (6) DVT prophylaxis Current Visit: Yes Status: Acute (7) Pulmonary embolism Current Visit: Yes Status: Acute - Summary of Assessment and Plan Summary of Assessment and Plan: Assessment Acute acute hypoxic respiratory failure Sepsis-resolved PE HCAP- unclear organism, possibly bacterial, LLL Lt lobe thyroid enlargement on CT Chronic Ductal ca in situ in Lt breast(2017) s/p radiation Factor V leiden mutation Diastolic heart failure h/o Ovarian ca(2010) s/p surgical debulking with hysterectomy and LN removal Plan - Sepsis resolved. Likely secondary to pneumonia. Was on Vanc/zoysn/levaquin. Stop zosyn. c/w levaquin. MRSA screen, RIP Urine ag negative. Blood and sputum cx NGTD. pulm recommendation appreciated. c/w Prednisone. Will also qualify for oxygen. c/w incentive spirometry. Will give one dose of lasix. - recently diagnosed pulmonary embolism on 02/14/19. Echocardiogram did not reveal any heart strain or thrombus. c/w xarelto started pack for now. Monitor Hb. Likely dilutional. No indication for transfusion. - Will need follow up US and TFT for thyroid enalargement found on CT as outpatient. Internal Medicine: Result - Labs CBC & Chem 7: 02/23/19 04:28 02/23/19 04:28 Labs: Short CBC 02/23/19 Range/Units 04:28 WBC 5.8 (4.3-11.1) K/mcL Hgb 10.4 L (11.5-15.4) g/dL Hct 33.1 L (35.3-44.9) % Plt Count 223 (140-400) K/mcL Neutrophils # 2.8 (1.6-8.9) K/mcL BMP 02/23/19 04:28 Sodium 137 Potassium 4.1 Chloride 106 Carbon Dioxide 25 BUN 11 Creatinine 1.03 Glucose 159 H Calcium 8.5 L Consult Discharge Plan - Plan Referrals: Skyler Hernández MD [Primary Care Provider] - ____ (2) Sepsis Qualifiers: Sepsis type: sepsis due to unspecified organism Qualified Code(s): A41.9 - Sepsis, unspecified organism (3) Ductal carcinoma in situ (DCIS) of breast Qualifiers: Laterality: unspecified laterality Qualified Code(s): D05.10 - Intraductal carcinoma in situ of unspecified breast (7) Pulmonary embolism Qualifiers: Pulmonary embolism type: unspecified Chronicity: unspecified Acute cor pulmonale presence: without acute cor pulmonale Qualified Code(s): I26.99 - Other pulmonary embolism without acute cor pulmonale
--- NOTE | 2019-02-23 15:43 | Electrocardiograph Report ---
[address] [address] Test Date: 2019-02-20 Pat Name: Heydi Sharp Department: EXAM5 Room: 2A42 Gender: Record Center Specialist: : [id number] Requested By: Ilya Turpin Order Number: [id number] Reading MD: Pasha Sung Measurements Intervals [place] Rate: 113 P: 37 ND: 162 QRS: 24 QRSD: 91 T: -11 QT: 306 QTc: 420 Interpretive Statements Sinus tachycardia Atrial premature complex Low voltage, precordial leads Borderline T abnormalities, anterior leads Electronically Signed On 02-23-2019 15:41:35 EDT by Pasha Sung
[2019-02-24] MEDS: Cholecalciferol (D-3) 1,000 UNIT TABLET PO SCH (08:59)
[2019-02-24] MEDS: predniSONE 20 MG TABLET PO SCH (08:59)
[2019-02-24] MEDS: *HR* Rivaroxaban 15 MG TABLET PO SCH (08:59)
--- NOTE | 2019-02-24 11:18 | Discharge Summary ---
- NOTES TO OUTPATIENT PROVIDER Notes to Outpatient Provider: Will need follow-up with pulmonology in 4-[address] scan follow-up. Recent given short course of steroids and Lasix. Will need follow-up BMP within 7 days for potassium. Patient to finish Levaquin for total 7 day course of antibiotics. Patient will need to follow for thyroid function as well as ultrasound and she was noted to have thyroid enlargement of the left lobe of thyroid. Orders not resulted at time of discharge: Pending orders 02/20/19 14:54 Culture,Sputum with Gram Stain [RM] Routine 02/20/19 15:13 Culture,Blood [BC] Stat Date of Encounter: 02/24/19 Time of Encounter: 10:11 - Discharge Diagnosis (1) HAP (hospital-acquired pneumonia) Priority: Primary Status: Acute (2) Sepsis Priority: Primary Status: Acute Qualifiers: Sepsis type: sepsis due to unspecified organism Qualified Code(s): A41.9 - Sepsis, unspecified organism (3) Ductal carcinoma in situ (DCIS) of breast Priority: Secondary Status: Acute Qualifiers: Laterality: unspecified laterality Qualified Code(s): D05.10 - Intraductal carcinoma in situ of unspecified breast (4) Factor V Leiden mutation Priority: Secondary Status: Acute (5) Acute respiratory failure with hypoxia Priority: Primary Status: Acute (6) DVT prophylaxis Priority: Secondary Status: Acute (7) Pulmonary embolism Priority: Secondary Status: Acute Qualifiers: Pulmonary embolism type: unspecified Chronicity: unspecified Acute cor pulmonale presence: without acute cor pulmonale Qualified Code(s): I26.99 - Other pulmonary embolism without acute cor pulmonale Hospital course: Ms. Sharp is a 58 year old female with past medical history of breast cancer, factor Stan Leyden deficiency, ovarian cancer, diastolic heart failure, recently diagnosed PE and started on xarelto came with complaint of shortness of breath. Patient was admitted for acute respiratory failure with hypoxia due to pneumonia and started on empiric antibiotics initially with Levaquin which was brought into vancomycin and Zosyn given patient has sepsis criteria. Patient was continued on xarelto and echo did not show any heart strain or thrombus. Pulmonary consult was obtained. Urine antigens were negative and MRSA screen as well. Blood cultures remain negative. As per infectious panel was positive for mycoplasma IgG only. Patient was started on prednisone per pulmonology for short course and antibiotics were D escalated. Given pedal edema patient was also started on Lasix for short course as she has history of diastolic heart failure and was with lung crackles and pedal edema. She was qualified for home oxygen. She is doing otherwise well and stable to be discharged home to follow with PCP and pulmonology. She was incidentally found to have enlargement of left thyroid on CT for which she will need outpatient ultrasound and thyroid function testing once acute illness resolves. We will also need a repeat CT pulmonology follow-up in 4-6 weeks. Discharge discussed with: patient, family - Time Spent with Patient Total time spent providing and/or coordinating discharge services: Time spent: Greater than 30 minutes (35) - Discharge Medications Prescriptions: New Furosemide [Lasix] 20 mg PO DAILY 5 Days #5 tablet levoFLOXacin [Levaquin] 750 mg PO DAILY 3 Days #3 tablet predniSONE [PredniSONE] See Taper PO DAILY 9 Days #18 tablet Continued Rivaroxaban [Xarelto] 15 mg PO BID Escitalopram [Lexapro] 10 mg PO DAILY Calcium Carbonate [Tums] 500 mg PO Q4H PRN PRN Reason: Heartburn Ergocalciferol (VITAMIN D2) [Vitamin D2] 50,000 unit PO TAMAYO Home Medications: Calcium Carbonate [Tums] 500 mg PO Q4H PRN 02/20/19 [History] Ergocalciferol (VITAMIN D2) [Vitamin D2] 50,000 unit PO TAMAYO 02/20/19 [History] Escitalopram [Lexapro] 10 mg PO DAILY 02/20/19 [History] Rivaroxaban [Xarelto] 15 mg PO BID 02/20/19 [History] Furosemide [Lasix] 20 mg PO DAILY 5 Days #5 tablet 02/24/19 [Rx] levoFLOXacin [Levaquin] 750 mg PO DAILY 3 Days #3 tablet 02/24/19 [Rx] predniSONE [PredniSONE] See Taper PO DAILY 9 Days #18 tablet 02/24/19 [Rx] Allergies/Adverse Reactions: Allergy/AdvReac Type Severity Reaction Status Date / Time No Known Allergies Allergy Verified 02/20/19 13:20 Date of admission: 02/20/19 18:00 Primary care physician: Skyler Hernández MD Consults: 02/20/19 16:16 Consult to Pulmonology [CONS] Routine Consulting Provider: [facility] Reason for Consult: Acute respiratory failure Call Completed: Yes 02/20/19 16:39 Consult to Pastoral Services [CONS] Routine Comment: please send tino per patient request 02/20/19 17:29 Consult to Oncology [CONS] Routine Consulting Provider: [facility] Reason for Consult: Factor V def with PE Call Completed: No 02/20/19 18:43 Consult to Invasive Line Access Team [CONS] Routine Reason for Consult: powerglide placement. see note. patient has IV in [place] but it is compromised extremity; failed attempt for IV in right arm. Line Type: EPIV 02/21/19 09:07 Consult to Nurse Navigator [CONS] Routine Comment: PN Discharging clinician: Zeesahn Rod - Constitutional Vitals: Temp Pulse Resp BP Pulse Ox 98.3 F 92 18 135/76 95 02/24/19 07:43 02/24/19 07:43 02/24/19 07:43 02/24/19 07:43 02/24/19 07:43 Exam: General: In no acute distress. Respiratory exam: no accessory muscle use, crackles on b/l lung mid lung filed Lt >Rt Cardiovascular exam: RRR, +S1, +S2. no murmur, gallop, rubs. GI/Abdominal exam: Non-tender, Non-distended, normal bowel sounds, soft, no peritoneal signs. Extremities exam: 1+ pedal edema b/l, pulses palpable in b/l lower extremities. no calf tenderness Neurological exam: CN II-XII intact, AO X3, no focal deficits. . - Patient Status Disposition: Home, Self-Care Condition: Fair - Discharge Instructions Follow Up With: Skyler Hernández MD [Primary Care Provider] -
[2019-02-24 12:15] VITALS: BP 121/76
[2019-02-24] MEDS: levoFLOXacin 750 MG/150 ML 750 MG/150 ML BAG IVPB SCH ×2 (12:35→12:53)
[2019-03-08] MEDS ORDERED: *HR* Rivaroxaban 10 MG TABLET PO SCH (17:00)
== END 2019-02-24 15:14 | disposition home or self-care (01) | DRG 720 ==
LOC: 2ANU 11:44 → EMEROOARM 11:44 → 2ANU 15:15 → SUATTDRO 18:00
PROVIDERS: ADMIT Internal Medicine Nephrology; ATTEND Internal Medicine